=== PATIENT | female | born 1950 | race African-American/Black ===

== ENCOUNTER → 2018-12-09 | Outpatient (CLI) | payer MEDICARE, OTHER ==
[~2018-12-09] MED LIST: MECLIZINE HCL12.5 MG PO; NOHOMEMEDICATIONS; NORCO 5-325 TA1 EACH PO; PENICILLIN VK250 MG PO; PREDNISONE 20 M20 MG PO; ZOFRAN4 MG PO
== END ==
LOC: M.LAB 05:09
DX: E87.6 Hypokalemia (principal)

== ENCOUNTER 2019-08-29 19:25 | Emergency (ER) | payer MEDICARE, OTHER ==
[~2019-08-29] VITALS: Ht 157.5 cm; Wt 104.3 kg
[2019-08-29] MEDS ORDERED: COZAAR 25 MG TA25 M2 (19:39)
[2019-08-29] MEDS ORDERED: ROSUVASTATIN CA10 MG PO (19:40)
[2019-08-29] MEDS ORDERED: NORVASC5 M1 PO (19:40)
[2019-08-29] MEDS ORDERED: HYDROCHLOROTHIA25 M2 PO (19:40)
[2019-08-29] MEDS ORDERED: CHILD'S OMEGA-1 EACH PO (19:41)
[2019-08-29] MEDS ORDERED: ASA81BEC PO (19:41)
[2019-08-29] MEDS ORDERED: PANTOPRAZOLE SO40 M1 PO (19:41)
[2019-08-29 20:03] LABS: ABSOLUTE BASOPHILS 0.1 thou/uL (0.0-0.2); ABSOLUTE LYMPHOCYTES 1.8 thou/uL (0.8-5.3); ABSOLUTE MONOCYTES 0.6 thou/uL (0.0-1.2); ABSOLUTE NEUTROPHILS 6.3 thou/uL (1.6-8.1); BASOPHILS 0.6 %; EOSINOPHILS 0.2 %; HEMATOCRIT 36.1 % (37.0-47.0); HEMOGLOBIN 12.2 gm/dL (12.0-15.0); LYMPHOCYTES 20.6 %; MCH 30.1 pg (26.0-34.0); MCHC 33.8 g/dL (28.0-37.0); MCV 88.9 fL (80.0-100.0); MONOCYTES 6.8 %; NUCLEATED RBCS 0 /100WBC; PLATELET COUNT* 257 thou/uL (150-400); POLYS 71.8 %; RBC 4.06 mil/uL (4.20-5.00); RDW-CV 14.3 % (10.5-14.5); WBC 8.8 thou/uL (4.0-11.0)
[2019-08-29 20:10] LABS: URINE BILIRUBIN NEGATIVE (Negative); URINE BLOOD NEGATIVE (Negative); URINE CLARITY CLEAR; URINE COLOR YELLOW; URINE GLUCOSE-RANDOM NEGATIVE (Negative); URINE KETONES NEGATIVE (Negative); URINE LEUKOCYTES-REFLEX 1+ (Negative); URINE NITRITE-REFLEX NEGATIVE (Negative); URINE PROTEIN NEGATIVE (Negative); URINE SPECIFIC GRAVITY 1.025 (1.005-1.030); URINE UROBILINOGEN 0.2 E.U./dl (0.2-1.0)
[2019-08-29 20:18] LABS: CREATININE 1.4 mg/dL (0.6-1.3); POTASSIUM 3.8 mmol/L (3.5-5.1)
[2019-08-29 20:22] LABS: BACTERIA-REFLEX >30 Many /HPF (None Seen); CASTS None Seen /LPF (None Seen); CRYSTALS None Seen /LPF (None Seen); MUCUS >6 Heavy strn/LPF (None Seen); SQUAMOUS >10 Many /LPF (0-3); URINE RBC 0-2 Rare /HPF (0-2); URINE WBC-REFLEX 0-5 Rare /HPF (0-5)
[2019-08-29 20:22] LABS: ALBUMIN 3.6 g/dL (3.4-5.0); MAGNESIUM 1.8 mg/dL (1.8-2.4); TOTAL BILIRUBIN 0.3 mg/dL (<0.1-1.0); TOTAL PROTEIN 7.8 g/dL (6.4-8.2)
[2019-08-29] MEDS ORDERED: KEFLEX500 M1 PO ×2 (20:48→21:34)
[2019-08-29] MEDS ORDERED: ONDANSETRON HCL4 M2 PO (20:48)
[2019-08-29 22:05] VITALS: BP 139/61
--- NOTE | 2019-08-31 08:52 | EKG ---
[place] [address] ELECTROCARDIOGRAM REPORT Name: ARIANA IVORY Room: [facility]#: [id number] Admission: 08/29/19 Attend Phys: Discharge: 08/29/19 Date of : 50 Date of Service: 08/29/192011 Report #: [id number] THIS REPORT FOR: //name// [facility] ED Test Date: 2019-08-29 Test Time: 20:12:20 Pat Name: ARIANA IVORY Department: Room: Gender: Naturopath: [place] : 1950 Requested By: Montse Long Order Number: [id number] MD: Vernon Barron Measurements Intervals [place] Rate: 92 P: 49 ND: 138 QRS: 13 QRSD: 93 T: -12 QT: 396 QTc: 490 Interpretive Statements Sinus rhythm Borderline T abnormalities tomorrow inferior leads Borderline prolonged QT interval Compared to ECG 10/01/2014 23:10:29 No significant changes Electronically Signed On 08-31-2019 8:51:59 CDT by Vernon Barron [email or web address] <ELECTRONICALLY SIGNED> By: Vernon Barron MD, FACC 08/31/19 0851 11 11 Vernon Barron MD, FAC /EPI
== END 2019-08-29 22:06 | disposition home or self-care (01) ==
LOC: M.ERS 19:25
PROVIDERS: Nurse Practitioner Family
DX: N39.0 Urinary tract infection, site not specified (principal); E86.0 Dehydration; I10 Essential (primary) hypertension; K21.9 Gastro-esophageal reflux disease without esophagitis; E78.00 Pure hypercholesterolemia, unspecified

== ENCOUNTER 2020-01-21 23:25 | Emergency (ER) | payer MEDICARE, OTHER ==
[~2020-01-21] VITALS: Ht 157.5 cm; Wt 99.8 kg
[~2020-01-21 23:25] MED LIST changes: +ASA81BEC PO; +CHILD'S OMEGA-1 EACH PO; +COZAAR 25 MG TA25 M2; +HYDROCHLOROTHIA25 M2 PO; +KEFLEX500 M1 PO; +NORVASC5 M1 PO; +ONDANSETRON HCL4 M2 PO; +PANTOPRAZOLE SO40 M1 PO; +ROSUVASTATIN CA10 MG PO
[2020-01-22 00:31] VITALS: BP 142/73
== END 2020-01-22 00:31 | disposition home or self-care (01) ==
LOC: M.ERS 23:25
DX: Z20.828 Contact with and (suspected) exposure to other viral communicable diseases (principal)